=== PATIENT | female | born 1970 | race Caucasian/White ===

== ENCOUNTER 2020-08-26 10:39 | Emergency (ER) | payer SELFPAY ==
[2020-08-26 10:40] VITALS: BP 168/100; PULSE 77; RESP 20; TEMP 36.8; O2SAT 98
--- NOTE | 2020-08-26 11:21 | PC.NURSE ---
LEFT EYE IRRIGATED PER PREVIOUS RN - 90 ML NS - NEOSPORIN OPHTHALMIC OINTMENT APPLIED WITH GAUZE - EYE KIT AT BEDSIDE
[2020-08-26] MEDS: ALPRAZolam (*CRX) 0.5 MG TABLET PO (11:30)
[2020-08-26] MEDS: MORPHINE SULFATE (*CRX) 4 MG/ML INJ 2 MG IM (11:45)
--- NOTE | 2020-08-26 13:06 | PC.NURSE ---
CALL PLACED TO [facility] FOR CONSULT
--- NOTE | 2020-08-26 13:31 | ED.EYEPROB ---
HPI - Eye Problem General Chief complaint: Eye Problems Stated complaint: super glue in eye Time Seen by Provider: 08/26/20 10:41 Source: patient and family Mode of arrival: ambulatory History of Present Illness HPI Narrative: this is a 50-year-old female that earlier this morning inadvertently placed super glue into her left eye thinking that was Visine causing severe pain with some eyelid some glued shut, with tearing or redness and erythema around the the I and eyelids with some remnants of super glue on her eyelashes. chief complaint: eye pain and eye redness Onset (ago): hour(s) Onset description: sudden Duration: constant Location: left eye Eye Symptoms: redness and foreign body sensation Place: home Mechanism: chemical exposure ( Super glue in left eye) Severity: severe Severity scale (1-10): 10 If Pain, Quality: burning and aching Related Data Home Medications Medication Instructions Recorded Confirmed buprenorphine-naloxone [Suboxone] 0.25 film SUBLINGUAL DAILY 08/26/20 08/26/20 Allergies Allergy/AdvReac Type Severity Reaction Status Date / Time No Known Allergies Allergy Unverified 01/05/20 13:34 Review of Systems Review of Systems: All systems reviewed & are unremarkable except as noted in HPI and below PMFSH Past Medical History Medical History Encounter for cosmetic surgery Surgical History Surgical History History of hysterectomy Family History Family History Father Diabetes mellitus Mother Diabetes mellitus Social History Social History Smoking status: Current every day smoker Second hand tobacco smoke exposure: No Alcohol intake: former Exam Const: General: no acute distress Orientation/consciousness: patient oriented x3 HENMT: Head: normal to inspection Eyes: Pupils: Equal, round and reactive pupils present Other: Has some super glue that is on her eyelashes and and left eyelid is a glued shut with surrounding eyelid swelling and erythema Neck: Neck: no lymphadenopathy Chest: Chest palpation & inspection: normal inspection of the chest Resp: Effort & Inspection: normal respiratory effort Auscultation: clear to auscultation bilaterally : General: Yes no CVA tenderness Urinary Catheter: Urinary Catheter: patent and draining Back/Spine/Pelvis: Back: no CVA tenderness Skin: General skin exam: normal color Rashes: no rashes Neuro: General: patient oriented x3 Extrem: General: normal to inspection and no pedal edema Psych: Mental Status: mental status grossly normal Course Course Emergency Course: a reassessment of patient the left eye was irrigated and Neosporin ointment was placed over the the eyelid and the I eventually opened and was evaluated with a fluorescein stain which showed corneal abrasion and chunks of glue were retrieved with a cotton swab the eye itself was irrigated profusely and antibiotic eye ointment was placed over the left eyelid. The patient was in severe pain did receive some pain medication. Called Ophthalmology for for referral with sports book board attendant explained that we did everything that they were going to do and to continue antibiotic ointment and follow-up with ophthalmology. Vital Signs Vital signs: Vital Signs Temperature 36.8 C 08/26/20 10:40 Pulse Rate 77 08/26/20 10:40 Respiratory Rate 20 08/26/20 10:40 Blood Pressure 168/100 H 08/26/20 10:40 Pulse Oximetry 98 08/26/20 10:40 Temperature 36.8 C 08/26/20 10:40 Pulse Rate 77 08/26/20 10:40 Respiratory Rate 20 08/26/20 10:40 Blood Pressure 168/100 H 08/26/20 10:40 Pulse Oximetry 98 08/26/20 10:40 Procedures FB Removal Eye Foreign Body #1: Foreign Body Removal Date: 08/26/20 Foreign Body Remova
[2020-08-26 14:09] VITALS: RESP 16
== END 2020-08-26 14:13 | disposition home or self-care (01) ==
PROVIDERS: Emergency Provider Emergency Medicine; PCP Physician Assistant
DX: T15.02XA Foreign body in cornea, left eye, initial encounter (principal)
CPT/HCPCS: 65220; 96372; 99283; A9270; J2270; J7030

== ENCOUNTER 2024-12-19 10:07 | Outpatient (CLI) | payer OTHER, SELFPAY ==
--- NOTE | ~2024-12-19 | CT_ITS ---
CT sinus wo con Ordering provider: Joce Henley M.D. History: . J32.2 - Chronic ethmoidal sinusitis . Comparison: None. Technique: Thin slice Scans CT of the paranasal sinuses was performed with coronal and sagittal refor matted images. No IV contrast. . Automated exposure control and iterative reconstruction technique w ere employed. The dose-length product was 317.41 mGy-cm. Findings: NASAL SEPTUM: Mild right nasal septal deviation. OSTEOMEATAL UNITS: Bilaterally patent. NASAL TURBINATES AND NASOPHARYNX: Normal. PARANASAL SINUSES: Well aerated. VISUALIZED MASTOIDS: Normal as visualized. BONES: Normal. SUPERFICIAL SOFT TISSUES/VISUALIZED BRAIN PARENCHYMA: Normal. IMPRESSION: Mild right nasal septal deviation. Other appearances are unremarkable. Reviewed, dictated and finalized at location A.
== END 2024-12-19 10:08 | disposition home or self-care (01) ==
PROVIDERS: PCP Registered Nurse; Visit Provider Otolaryngology
DX: J32.2 Chronic ethmoidal sinusitis (principal); M26.622 Arthralgia of left temporomandibular joint; J31.0 Chronic rhinitis; J34.2 Deviated nasal septum
CPT/HCPCS: 70486

== ENCOUNTER 2025-01-03 12:23 | Emergency (ER) | payer OTHER, SELFPAY ==
--- OUTSIDE RECORDS SUMMARY | 2025-01-03 12:25 | XMS_ITS | Data Portability ---
Author Organization [facility] Address [address] [place] [address] Care Team Providers Care Contact Lens Manufacturer Name Role Phone CARLYN ALCANTARA Primary Care Provider [phone] Assessment No assessment recorded. Plan of Treatment Reminders Order Date Submit Date Provider Last Modified By Organization Details Last Modified Time Details Appointments None recorded. Lab CBC 2023 024 [facility], [address] [facility] [address], [place], [address], 4 10:17:05 CMP, serum or plasma 2023 024 [facility], [address] [place] [address] 2, [place], [address], 4 10:17:03 lipid panel, serum 2023 024 [facility], [address] [facility] [address], [place], [address], 4 10:17:01 urinalysis , dipstick 2023 024 MARYLU In-Office Order, Internal Use Only DO Not Attach Compendium DO Not Attach Compendium, Do Not Delete/merge, [id number] 12:05:23 Referral scale model maker referral 2023 024 MARYLU Christiansen DPShantal, [facility] [place], [address], 4 08:44:12 neurologic al surgeon referral 2023 [email or web address] [facility] Neurosurgery, [address] [facility], [place], [address], 11:14:11 Procedures None recorded. Surgeries None recorded. Imaging None recorded. Medication Orders Medrol (Zeke) 4 mg tablets in a dose pack 2023 [id number], [address], [place], [place], [id number], 11:34:16 gabapentin 100 mg capsule 2023 [id number], [address], [place], [place], [id number], 12:47:58 Patient TargetsNo targets recorded. Patient Instructions Encounter Date Encounter Id Patient Instructions Last Modified By Organization Details Last Modified Time 10/16/2023 [id number] healthy upper back: exercises [email or web address] Not available 10/16/2023 12:42:00 10/18/2023 [id number] healthy upper back: exercises [email or web address] Not available 10/18/2023 15:49:12 Reason for Referral Neurological Surgeon Referra l for Thoracic back pain Referring Physician: [facility], Encounter Date: 10/16/2023 Pre Parole Counseling Aide Referral for Bila teral plantar fasciitis Referring Physician: Carlyn Alcantara [facility] Medicine, Encounter Date: 12/04/2023 Results Created Date Observation Date Name Description Value Unit Range Abnormal Flag Note LastModifiedBy Organization Detail LastModifiedTime 12/04/1912/05/2023 LIPID PANEL cholesterol, total 226 mg/dL 100-19 9 above high normal Not Available [facility] [address] [place], [address], 12/05/2023 10:17:01 12/04/19 24 12/05/2023 LIPID PANEL triglyceride s 80 mg/dL 0-149 Not Available [address], [address], 12/05/2023 10:17:01 12/04/19 24 12/05/2023 LIPID PANEL HDL cholesterol 84 mg/dL >39 Not Available [address], [address], 12/05/2023 10:17:01 12/04/19 24 12/05/2023 LIPID PANEL VLDL cholesterol fabienne 14 mg/dL 5-40 Not Available [address], [address], 12/05/2023 10:17:01 12/04/19 24 12/05/2023 LIPID PANEL LDL chol calc (nih) 128 mg/dL 0-99 above high normal Not Available [address], [address], 12/05/2023 10:17:01 12/04/19 24 12/05/2023 COMP. METAB OLIC PANEL (14) glucose 96 mg/dL 70-99 Not Available [address], [address], 12/05/2023 10:17:03 12/04/19 24 12/05/2023 COMP. METAB OLIC PANEL (14) BUN 11 mg/dL 6-24 Not Available [address], [address], 12/05/2023 10:17:03 12/04/19 24 12/05/2023 COMP. METAB OLIC PANEL (14) creatinine 0.74 mg/dL 0.57-1 .00 Not Available [address], [address], 12/05/2023 10:17:03 12/04/19 24 12/05/2023 COMP. METAB OLIC PANEL (14) eGFR 95 mL/mi n/1.7 3 >59 Not Available [address], [address], 12/05/2023 10:17:03 12/04/19 24 12/05/2023 COMP. METAB OLIC PANEL (14) BUN/creatini ne ratio 15 9-23 Not Available [address], [address], 12/05/2023 10:17:03 12/04/19 24 12/05/2023 COMP. METAB OLIC PANEL (14) sodium 140 mmol/ L 134-14 4 Not Available [address], [address], 12/05/2023 10:17:03 12/04/19 24 12/05/2023 COMP. METAB OLIC PANEL (14) potassium 4.5 mmol/ L 3.5-5. 2 Not Available [address], [address], 12/05/2023 10:17:03 12/04/19 24 12/05/2023 COMP. METAB OLIC PANEL (14) chloride 102 mmol/ L 96-106 Not Available [address], [address], 12/05/2023 10:17:03 12/04/19 24 12/05/2023 COMP. METAB OLIC PANEL (14) carbon dioxide, total 22 mmol/ L 20-29 Not Available [address], [address], 12/05/2023 10:17:03 12/04/19 24 12/05/2023 COMP. METAB OLIC PANEL (14) calcium 9.2 mg/dL 8.7-10 .2 Not Available [address], [address], 12/05/2023 10:17:03 12/04/19 24 12/05/2023 COMP. METAB OLIC PANEL (14) protein, total 6.8 g/dL 6.0-8. 5 Not Available [address], [address], 12/05/2023 10:17:03 12/04/19 24 12/05/2023 COMP. METAB OLIC PANEL (14) albumin 4.4 g/dL 3.8-4. 9 Not Available [address], [address], 12/05/2023 10:17:03 12/04/19 24 12/05/2023 COMP. METAB OLIC PANEL (14) globulin, total 2.4 g/dL 1.5-4. 5 Not Available [address], [address], 12/05/2023 10:17:03 12/04/19 24 12/05/2023 COMP. METAB OLIC PANEL (14) A/G ratio 1.8 1.2-2. 2 Not Available [address], [address], 12/05/2023 10:17:03 12/04/19 24 12/05/2023 COMP. METAB OLIC PANEL (14) bilirubin, total 0.3 mg/dL 0.0-1. 2 Not Available [address], [address], 12/05/2023 10:17:03 12/04/19 24 12/05/2023 COMP. METAB OLIC PANEL (14) alkaline phosphatase 55 IU/L 44-121 Not Available [address], [address], 12/05/2023 10:17:03 12/04/19 24 12/05/2023 COMP. METAB OLIC PANEL (14) AST (SGOT) 18 IU/L 0-40 Not Available [facility] & [address], [address], 12/05/2023 10:17:03 12/04/19 24 12/05/2023 COMP. METAB OLIC PANEL (14) ALT (SGPT) 15 IU/L 0-32 Not Available [address], [address], 12/05/2023 10:17:03 12/04/19 24 12/05/2023 CARDI OVASC ULAR REPOR T interpretati on Note Suppl emfouzia al repor t is avail able. Not Available [address], [address], 12/05/2023 10:17:04 12/04/19 24 12/05/2023 CARDI OVASC ULAR REPOR T pdf . Not Available [facility] & [address], [address], 12/05/2023 10:17:04 12/04/19 24 12/05/2023 CBC, PLATE LET, NO DIFFE RENTI AL WBC 4.1 x10e3 /uL 3.4-10 .8 Not Available [address], [address], 12/05/2023 10:17:05 12/04/19 24 12/05/2023 CBC, PLATE LET, NO DIFFE RENTI AL RBC 4.01 x10e6 /uL 3.77-5 .28 Not Available [address], [address], 12/05/2023 10:17:05 12/04/19 24 12/05/2023 CBC, PLATE LET, NO DIFFE RENTI AL hemoglobin 12.3 g/dL 11.1-1 5.9 Not Available [facility] & [address], [address], 12/05/2023 10:17:12/04/1912/05/2023 CBC, PLATE LET, NO DIFFE RENTI AL hematocrit 37.1 % 34.0-4 6.6 Not Available [address], [address], 12/05/2023 10:17:12/04/1912/05/2023 CBC, PLATE LET, NO DIFFE RENTI AL MCV 93 fL 79-97 Not Available [facility] & [address], [address], 12/05/2023 10:17:12/04/19 24 12/05/2023 CBC, PLATE LET, NO DIFFE RENTI AL MCH 30.7 pg 26.6-3 3.0 Not Available [address], [address], 12/05/2023 10:17:12/04/19 24 12/05/2023 CBC, PLATE LET, NO DIFFE RENTI AL MCHC 33.2 g/dL 31.5-3 5.7 Not Available [address], [address], 12/05/2023 10:17:12/04/1912/05/2023 CBC, PLATE LET, NO DIFFE RENTI AL RDW 13.2 % 11.7-1 5.4 Not Available [address], [address], 12/05/2023 10:17:12/04/1912/05/2023 CBC, PLATE LET, NO DIFFE RENTI AL platelets 286 x10e3 /uL 150-45 0 Not Available [address], [address], 12/05/2023 10:17:05 12/04/19 24 12/04/2023 urina lysis , dipst ick Leukocytes Negati ve Not Available In-Office Order Internal Use Only DO Not Attach Compendium DO Not Attach Compendium, Do Not Delete/merge, [id number] 12/04/2023 11:35:22 12/04/19 24 12/04/2023 urina lysis , dipst ick Nitrite negati ve Not Available In-Office Order Internal Use Only DO Not Attach Compendium DO Not Attach Compendium, Do Not Delete/merge, 12/04/2023 11:35:22 12/04/19 24 12/04/2023 urina lysis , dipst ick Urobilinogen .2 Not Available In-Of fice Order Internal Use Only DO Not Attach Compendium DO Not Attach Compendium, Do Not Delete/merge, [facility] 12/04/2023 11:35:22 12/04/19 24 12/04/2023 urina lysis , dipst ick Protein Negati ve Not Available In-Office Order Internal Use Only DO Not Attach Compendium DO Not Attach Compendium, Do Not Delete/merge, 12/04/2023 11:35:22 12/04/19 24 12/04/2023 urina lysis , dipst ick pH 6.0 Not Available In-Office Order Internal Use Only DO Not Attach Compendium DO Not Attach Compendium, Do Not Delete/merge, 12/04/2023 11:35:22 12/04/19 24 12/04/2023 urina lysis , dipst ick Blood Negati ve Not Available In-Office Order Internal Use Only DO Not Attach Compendium DO Not Attach Compendium, Do Not Delete/merge, 12/04/2023 11:35:22 12/04/19 24 12/04/2023 urina lysis , dipst ick Specific [place] 1.005 Not Available In-Off ice Order Internal Use Only DO Not Attach Compendium DO Not Attach Compendium, Do Not Delete/merge, 12/04/2023 11:35:22 12/04/19 24 12/04/2023 urina lysis , dipst ick Ketone Negati ve Not Available In-Office Order Internal Use Only DO Not Attach Compendium DO Not Attach Compendium, Do Not Delete/merge, [facility] 12/04/2023 11:35:22 12/04/19 24 12/04/2023 urina lysis , dipst ick Bilirubin Negati ve Not Available In-Office Order Internal Use Only DO Not Attach Compendium DO Not Attach Compendium, Do Not Delete/merge, [facility] 12/04/2023 11:35:22 12/04/19 24 12/04/2023 urina lysis , dipst ick Glucose Negati ve Not Available In-Office Order Internal Use Only DO Not Attach Compendium DO Not Attach Compendium, Do Not Delete/merge, [facility] 12/04/2023 11:35:22 12/04/19 24 12/04/2023 urina lysis , dipst ick Appearance Clear Not Available In-Offi ce Order Internal Use Only DO Not Attach Compendium DO Not Attach Compendium, Do Not Delete/merge, [facility] 12/04/2023 11:35:22 12/04/19 24 12/04/2023 urina lysis , dipst ick Color Pale Yellow Not Available In-Office Order Internal Use Only DO Not Attach Compendium DO Not Attach Compendium, Do Not Delete/merge, [facility] 12/04/2023 11:35:22 09/10/19 24 08/17/2015 XR, cervi fabienne spine No observ ation record ed. BARCODE Not Available 2023 12:46:48 09/10/19 24 09/23/2015 MRI, cervi fabienne spine , w/o contr ast No observ ation record ed. BARCODE Not Available 2023 12:46:49 09/25/19 24 09/24/2023 XR, thora cic spine No observ ation record ed. [facility] (Radiology) [address] [place] [address] , [place], [address], 03/18/2024 09:51:01 09/25/19 24 09/24/2023 XR, cervi fabienne spine No observ ation record ed. [facility] (Radiology) [address] [place], [address], 03/18/2024 09:50:55 10/08/19 24 10/08/2023 MRI, thora cic spine , w/o contr ast No observ ation record ed. [facility] (Radiology) [address] [place], [address], 03/18/2024 09:50:49 Result Notes None recorded. Problems Name Problem SNOMED Code Status Onset Date Resolution Date Notes Provider Name and Address Organization Details Recorded Time Chronic migraine without aura 7823697207135 05 Active 2014 Valarie Burton [place] null, [place] [facility] 11:27:20 Postural dizziness 496028319 Active Valarie [place] [facility] 11:27:20 Anxiety 53748791 Active Valarie [place] [facility] 11:27:20 Joint finding 664660441 Active Valarie [place] [facility] 11:27:20 Mammography finding 409002612 Active Valarie [place] [facility] 11:27:20 Vaginal discharge 558011653 Active Valarie [place] [facility] 11:27:20 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 Active Valarie [place] [facility] 11:27:19 Migraine 45472422 Active Valarie [place] [facility] 11:27:20 Depressive disorder 85300078 Active Valarie [place] [facility] 11:27:20 Pain of shoulder region 87724450 Active Valarie [place] [facility] 11:27:20 Carpal tunnel syndrome 85635338 Active Valarie [place] [facility] 1 11:27:20 Lumbago with sciatica 042722963 Active Valarie [place] [facility] 11:27:19 Irregular periods 94736421 Active Valariejosé Burton ARTEM [place] [facility] 11:27:20 Uterine leiomyoma 00313535 Active Valariejosé Burton ARTEM [place] [facility] 11:27:20 Anemia 563745252 Active Valarie [place] ARTEM [place] [facility] 11:27:20 Menometrorr hagia 479460205 Active Valarie [place] [facility] 11:27:20 Dysuria 73401604 Active Valarie [place] [facility] 11:27:20 Menopausal flushing 579191930 Active Valarie [place] [facility] 11:27:20 Essential hypertensio n 01729100 Active Valarie [place] [facility] 11:27:20 Acute sinusitis 18636073 Active Valarie [place] [facility] 11:27:20 Constipatio n 71022558 Active Valarie BurtonARTEM [place] [facility] 11:27:20 Problem Notes None recorded. Procedures Surgical History Date Name Laterality Status Provider Name and Address Organization Details Recorded Time 2022 colonoscopy completed ARTEM Tay - [facility] 08:31:34 2022 esophagogastroduodenoscopy completed ARTEM Tay - [facility] 08:34:30 2019 Date of Last Mammogram completed ARTEM Whitman - [facility] 1 11:30:03 2015 Endometrial Biopsy completed Briana MARQUEZ - [facility] 6 16:30:10 2014 Total hysterectomy completed Valarie Burton MA [place] - [facility] 1 11:31:09 2014 colonoscopy completed ARTEM Whitman - [facility] 1 11:31:41 2012 Date of Last Pap Smear completed Callie MARQUEZ - [facility] 5 12:16:10 Anesth nose/sinus surgery completed Sheri Pham MA [facility] 5 15:37:07 Caesarean Section completed Ashley Thayer MA [facility] 6 14:12:11 Tubal Ligation completed Sheri Pham MA [facility] 5 15:37:07 Imaging Results None recorded. Procedure Notes None recorded. Medical Equipment None Reported. Allergies Allergen ID Allergen Name Allergen Category Reaction Reaction Severity Criticality Documentation Date Start Date Code Code System Note Provider Name and Address Organization Details Recorded Time 076102 cyclobenz aprine medicatio n Not available Not available Not available 07/28/2020 07175 RxNorm ARTEM Whitman, [facility] 3 10:41:07 Medications Name Sig Start Date Stop Date Status Note LastModified by Organization Details LastModified Time senna-s tab 8.6-50mg active Not Available Not Available Not Available senna s 8.6-50mg tablets TAKE 2 TABLETS BY MOUTH DAILY FOR CHRONIC CONSTIPA TION MANAGEME NT active Not Available Not Available No t Available Prescript ion - Prior Authoriza tion Request 11/15 completed Lupron request and document s Not Available Not Available Not Available celecoxib 200 mg capsule Take 1 capsule every day by oral route for 90 days. 09/29 completed not taking Not Available Not Available Not Available cyclobenz aprine 10 mg tablet Take 1 tablet 3 times a day by oral route as needed. active Not Available Not Available No t Available amoxicill in 500 mg capsule TAKE 1 CAPSULE BY MOUTH THREE TIMES DAILY 05/03 completed Not Available Not Available Not Available Colace 100 mg capsule Take 1 capsule twice a day by oral route. 2015 active Not Available Not Available Not Avai lable paroxetin e 10 mg tablet Take 1 tablet every day by oral route. 12/15 completed Not Available Not Available Not Available azithromy farshad 250 mg tablet TK 2 TS PO ON DAY 1, THEN TK 1 T PO D FOR 4 DAYS 03/27 completed Not Available Not Available Not Available ibuprofen 800 mg tablet Take 800 mg by oral route. 07/28 completed Not Available Not Available Not Available valacyclo vir 1 gram tablet active Not Available Not Available Not Available hydrocodo ne 5 mg-acetam inophen 325 mg tablet 07/28 completed Not Available Not Available Not Available dextromet horphan-g uaifenesi n 10 mg-100 mg/5 mL oral liquid Take 5 mL every 4 hours by oral route for 8 days. 05/30 completed Not Available Not Available Not Available Paxil 20 mg tablet Take 1 tablet every day by oral route. 12/15 completed Not Available Not Available Not Available ondansetr on HCl 4 mg tablet 02/20 completed Not Available Not Available Not Available prednison e 5 mg tablet active Not Available Not Available Not Available Pyridium 200 mg tablet Take 1 tablet 3 times a day by oral route after meals for 2 days. 11/15 completed Not Available Not Available Not Available Aygestin 5 mg tablet Take 1 tablet every day by oral route as directed for 30 days. 11/15 completed Not Available Not Available Not Available estradiol 0.05 mg/24 hr semiweekl y transderm al patch APPLY 1 PATCH TOPICALL Y TO THE SKIN 2 TIMES A WEEK DIRECTED 05/30 completed Not Available Not Available Not Available valacyclo vir 500 mg tablet TAKE 1 TABLET BY MOUTH TWICE DAILY. START 24 HOURS BEFORE PROCEDUR E active Not Available Not Available No t Available ciproflox acin 500 mg tablet TAKE 1 TABLET BY MOUTH TWICE DAILY FOR 10 DAYS 05/30 completed Not Available Not Available Not Available sulfameth oxazole 800 mg-trimet hoprim 160 mg tablet Take 1 tablet every 12 hours by oral route for 10 days. 05/02 completed Not Available Not Available Not Available omeprazol e 40 mg capsule,d elayed release TAKE 1 CAPSULE BY MOUTH ONCE DAILY BEFORE A MEAL active Not Available Not Available No t Available tramadol 50 mg tablet Take 1 tablet every 6 hours by oral route as needed. 05/03 completed Not Available Not Available Not Available neomycin- bacitraci n-polymyx n 3.5 mg-400 unit-10,0 00 unit/gram eye oint APPLY A SMALL AMOUNT INTO THE CONJUNCT IVAL SAC(S) IN AFFECTED EYE(S) BY OPHTHALM IC ROUTE EVERY 4 HOURS 05/03 completed Not Available Not Available Not Available terbinafi ne HCl 250 mg tablet Take 1 tablet every day by oral route for 84 days. active Not Available Not Available No t Available amoxicill in 875 mg tablet TAKE 1 TABLET BY MOUTH EVERY 12 HOURS FOR 10 DAYS 09/09 completed Not Available Not Available Not Available famotidin e 20 mg tablet 20 mg twice a day by oral route. 02/20 completed Not Available Not Available Not Available estradiol 1 mg tablet TAKE 1 TABLET BY MOUTH DAILY 05/30 completed Not Available Not Available Not Available ascorbic acid (vitamin C) 500 mg tablet 07/28 completed Not Available Not Available Not Available Zoloft 50 mg tablet Take 1 tablet every day by oral route. 11/15 completed Not Available Not Available Not Available methotrex ate sodium 2.5 mg tablet TAKE 5 TABLETS BY MOUTH IN THE MORNING AND 5 TABLETS IN THE EVEINING ONCE WEEKLY active Not Available Not Available No t Available meclizine 25 mg tablet Take 1 tablet 3 times a day by oral route as needed. 2014 active Not Available Not Available Not Avai lable Diamond 180 mg tablet Take 180 mg by oral route. 07/28 completed Not Available Not Available Not Available bisacodyl 10 mg rectal supposito ry Insert 1 supposit ory every day by rectal route as directed for 7 days. 11/15 completed Not Available Not Available Not Available cephalexi n 500 mg capsule TAKE 1 CAPSULE BY MOUTH EVERY 8 HOURS FOR 10 DAYS DIRECTED 09/29 completed Not Available Not Available Not Available ferrous sulfate 325 mg (65 mg iron) tablet Take 1 tablet 3 times a day by oral route. 2015 active Not Available Not Available Not Avai lable prednison e 50 mg tablet TAKE 1 TABLET BY MOUTH EVERY MORNING 09/09 completed Not Available Not Available Not Available naproxen 500 mg tablet,de layed release active Not Available Not Available Not Available progester one micronize d 200 mg capsule TAKE 1 CAPSULE BY MOUTH EVERY DAY AT BEDTIME 09/29 completed Not Available Not Available Not Available hydrochlo rothiazid e 12.5 mg capsule Take 1 capsule every day by oral route. 12/28 completed Not Available Not Available Not Available diclofena c potassium 50 mg tablet Take 1 tablet twice a day by oral route. 2015 active Not Available Not Available Not Avai lable gabapenti n 300 mg capsule TAKE 1 CAPSULE BY MOUTH THREE TIMES DAILY 12/03 completed Not taking Not Available Not Available Not Available sertralin e 25 mg tablet Take 1 tablet every day by oral route for 90 days. 01/07 completed Not Available Not Available Not Available omeprazol e 20 mg capsule,d elayed release Take 1 capsule every day by oral route for 90 days. 09/23 completed Not Available Not Available Not Available estradiol 2 mg tablet TAKE 1 TABLET BY MOUTH DAILY active Not Available Not Available No t Available diclofena c sodium 75 mg tablet,de layed release Take 1 tablet twice a day by oral route for 30 days. active Not Available Not Available No t Available folic acid 1 mg tablet active Not Available Not Available Not Available hydroxyzi ne HCl 25 mg tablet TAKE 1 TABLET BY MOUTH THREE TIMES A DAY NEEDED ANXIETY ATTACK active Not Available Not Available No t Available gabapenti n 100 mg capsule TAKE 1 CAPSULE BY MOUTH THREE TIMES DAILY active Not Available Not Available No t Available lotepredn ol etabonate 0.5 % eye drops,ro pension INSTILL ONE DROP IN BOTH EYES THREE TIMES DAILY X 2 WEEKS. SHAKE WELL BEFORE USE 09/09 completed Not Available Not Available Not Available azelastin e 137 mcg (0.1 %) nasal spray [place] 2 sprays every day by intranas al route for 10 days. 02/12 completed Not Available Not Available Not Available ibuprofen 600 mg tablet Take 1 tablet every 6 hours by oral route. 2015 active Not Available Not Available Not Avai lable estradiol 0.01% (0.1 mg/gram) vaginal cream APPLY A PEA SIZE AMOUNT AT NIGHT TO URETHRAL MEATUS AND VAGINAL OPENING TWICE WEEKLY 05/30 completed Not Available Not Available Not Available methylpre dnisolone 4 mg tablets in a dose pack FOLLOW PACKAGE DIRECTIO NS active Not Available Not Available No t Available Zoloft 100 mg tablet Take 1 tablet every day by oral route. 2014 active Not Available Not Available Not Avai lable fluticaso ne propionat e 50 mcg/actua tion nasal spray,ro pension [place] 2 sprays every day by intranas al route. 11/15 completed Not Available Not Available Not Available naproxen 500 mg tablet Take 1 tablet twice a day by oral route as needed. 2015 active Not Available Not Available Not Avai lable amoxicill in 875 mg-potass ium clavulana te 125 mg tablet Take 1 tablet every 12 hours by oral route for 10 days. 05/03 completed Not Available Not Available Not Available neomycin 3.5 mg/g-poly myxin B 10,000 unit/g-de xameth 0.1 % eye oint 05/03 completed Not Available Not Available Not Available neomycin- bacitraci n-poly-HC 3.5 mg-400-10 ,000 unit/g-1 % eye ointment 05/03 completed Not Available Not Available Not Available azithromy farshad 500 mg tablet TAKE 1 TABLET BY MOUTH EVERY DAY FOR 3 DAYS 05/30 completed Not Available Not Available Not Available aripipraz ole 20 mg tablet 05/03 completed Not Available Not Available Not Available Premarin 0.625 mg tablet Take 0.625 mg by oral route. 07/28 completed Not Available Not Available Not Available Zyrtec active Not Available Not Availa ble Not Available hydrochlo rothiazid e 12.5 mg tablet 11/15 completed Not Available Not Available Not Available buprenorp myranda 2 mg-naloxo ne 0.5 mg sublingua l film DISSOLVE 1 FILM UNDER TONGUE TWICE A DAY active Not Available Not Available No t Available Lupron Depot-Ped 11.25 mg (3 month) intramusc ular syringe kit Inject 1 kit by intramus cular route as directed . 2015 active Not Available Not Available Not Avai lable Linzess 145 mcg capsule TAKE 1 CAPSULE BY MOUTH EVERY DAY active Not Available Not Available No t Available Stimulant Laxative Plus 8.6 mg-50 mg tablet TAKE 2 TABLETS BY MOUTH DAILY FOR CHRONIC CONSTIPA TION MANAGEME NT active Not Available Not Available No t Available Minastrin 24 Fe 1 mg-20 mcg (24)/75 mg (4) chewable tablet Chew 1 tablet every day by oral route. 2015 active Not Available Not Available Not Avai labkat Brisdelle 7.5 mg capsule 11/15 completed Not Available Not Available Not Available ID NOW COVID-19 Test Kit TEST DIRECTED TODAY 09/29 completed Not Available Not Available Not Available Voltaren Arthritis Pain 1 % topical gel APPLY 2 GRAMS TO THE AFFECTED AREA(S) BY TOPICAL ROUTE 4 TIMES PER DAY 05/30 completed Not Available Not Available Not Available Paxlovid 300 mg (150 mg x 2)-100 mg tablets in a dose pack Take (1 Dose pack) two times a day for 5 days 09/29 completed Not Available Not Available Not Available Vitals Date Recorded Body height Body mass index (BMI) Body weight Oxygen saturation Oxygen saturation in Arterial blood by Pulse oximetry Heart rate Systolic And Diastolic Provider Name and Address Organization Details Last Updated DateTime 4 152.4 cm 22.8 kg/m2 81180.3 1 g 98 % 98 % 57 /min 118/84 mm[Hg] Valarie Burton MA MA - [facility] 4 15:23:47 Date Recorded Body height Body mass index (BMI) Body weight Body temperature Oxygen saturation Oxygen saturation in Arterial blood by Pulse oximetry Heart rate Respiratory rate Systolic And Diastolic Provider Name and Address Organization Details Last Updated DateTime 4 152.4 cm 22.8 kg/m2 52732.3 1 g 98.2 [degF] 99 % 99 % 59 /min 16 /min 118/82 mm[Hg] Carlyn Alcantara PA-C Attn: Carlo villarreal,[address] [place], [address], [place] - [facility] 4 12:08:07 Date Recorded Body height Body mass index (BMI) Body weight Oxygen saturation Oxygen saturation in Arterial blood by Pulse oximetry Heart rate Systolic And Diastolic Provider Name and Address Organization Details Last Updated DateTime 4 152.4 cm 23.1 kg/m2 84774.7 g 98 % 98 % 56 /min 124/78 mm[Hg] Arline Aguilar MA [facility] 4 15:27:22 Date Recorded Body height Body mass index (BMI) Body weight Oxygen saturation Oxygen saturation in Arterial blood by Pulse oximetry Heart rate Systolic And Diastolic Provider Name and Address Organization Details Last Updated DateTime 4 152.4 cm 23 kg/m2 46851.9 g 98 % 98 % 64 /min 102/68 mm[Hg] Arline Aguilar MA [facility] 4 12:18:03 Date Recorded Body height Body mass index (BMI) Body weight Oxygen saturation Oxygen saturation in Arterial blood by Pulse oximetry Heart rate Systolic And Diastolic Provider Name and Address Organization Details Last Updated DateTime 4 152.4 cm 23.7 kg/m2 41063.7 8 g 98 % 98 % 78 /min 146/88 mm[Hg] Arline Aguilar MA [facility] 4 11:16:09 Social History Question Answer Notes LastModified by Organizat ion Details LastModified Time Tobacco Smoking Status Former Smoker Sheri Pham MA [facility] 10/01/2014 15:37:07 Do You Have An Advance Directive? No Information not available 10/01/2014 What Is Your Level Of Caffeine Consumption? Heavy [email or web address] Information not available 10/16/2023 How Much Tobacco Do You Chew? None Information not available 12/16/2014 In The 14 Days Before Symptom Onset, Have You Had Close Contact With A Laboratory-confir med COVID-19 While That Case Was Ill? No Information not available 07/28/2020 In The 14 Days Before Symptom Onset, Have You Had Close Contact With A Person Who Is Under Investigation For COVID-19 While That Person Was Ill? No Information not available 07/28/2020 Have You Been To An Area Known To Be High Risk For COVID-19? No Information not available 07/28/2020 Are You Deaf Or Do You Have Serious Difficulty Hearing? No Information not available 05/03/2021 What Type Of Diet Are You Following? REGULAR Information not available 03/27/2022 Which Illicit Or Recreational Drugs Have You Used? None Information not available 12/16/2014 What Is The Highest Grade Or Level Of School You Have Completed Or The Highest Degree You Have Received? [id number] Information not available 07/26/2021 Who Is Your Employer? [employer] Information not available 07/26/2021 Are There Any Guns Present In Your Home? Yes Information not available 09/07/2015 Hard Of Hearing Or Deaf In One Or Both Ears? No Information not available 10/01/2014 Legally Blind In One Or Both Eyes? No Information no t available 10/01/2014 Marital Status Informatio n not available 10/01/2014 What Was The Date Of Your Most Recent Tobacco Screening? 12/04/2023 Information not available 12/04/2023 Performs Monthly Self-breast Exam? No Information no t available 10/01/2014 Do You Have Any Pets? Yes 8 Cats, 1 Dog Information not available 07/26/2021 What Is Your Relationship Status? Information not available 05/03/2021 Do You Use Your Seat Belt Or Car Seat Routinely? Yes Information not available 05/03/2021 Seat Belts Used Routinely Yes Information not available 10/01/2014 Smoke Alarm In Home Yes Information not available 10/01/2014 Do You Have Smoke And Carbon Monoxide Detectors In Your Home? Yes Information not available 05/03/2021 Are You Passively Exposed To Smoke? No Information no t available 05/03/2021 How Much Tobacco Do You Smoke? No Information not available 09/07/2015 General Stress Level High Information not available 07/28/2020 Do You Use Sunscreen Routinely? Yes Information not available 07/26/2021 Has Tobacco Cessation Counseling Been Provided? No Information not available 07/26/2021 On What Date Was Tobacco Cessation Counseling Provided? 12/04/2023 Information not available 12/04/2023 Sex: Female Functional Status Question Answer Note LastModified by Organizat ion Details LastModified Time Do you use any illicit or recreational drugs? No Information not available 05/03/2021 Do you or have you ever used any other forms of tobacco or nicotine? No Information not available 07/26/2021 What is your level of alcohol consumption? None Information not available 03/27/2022 Do you or have you ever used smokeless tobacco? Never used smokeless tobacco Information not available 01/08/2020 Are you currently employed? Yes Information not available 05/03/2021 Are you able to care for yourself? 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 Never used electronic cigarettes Information not available 01/08/2020 What is your exercise level? Heavy Information not available 07/26/2021 What type of noise exposure are you exposed to? Industrial Information not available 07/26/2021 Mental Status Question Answer Note LastModified by Organization D etails LastModified Time Do you feel stressed (tense, restless, nervous, or anxious, or unable to sleep at night)? [id number] Information not available 09/29/2022 Family History Relationship Description Onset Age of this Age Resolved Age Notes LastModified by Organization Details LastModified Time Mother Chronic obstructive pulmonary disease [email or web address] Not available 2015 23:03:25 Father Diabetes mellitus [email or web address] Not available 2015 23:03:25 Medical History Condition Response Other N High Blood Pressure N Atrial Fibrillation N Breast Cancer N Blood Clots N COPD N Depression N Lung Disease N Breast Problem N Anesthesia Complications N Headaches/Migraines Y Anxiety Disorder N Muscle, Joint, or Bone Problems N Vision or Eye Problems Y Infertility N Polyps N Acid Reflux (GERD) Y Cancer N Stroke N ADHD N Endometriosis N High Cholesterol N Liver Disease N Rheumatoid Arthritis Y Headaches N Schizophrenia N Heart Problems Y Thyroid Problems N Kidney or Bladder Problems N GI Problems Y Acne N Skin Problems N Eating Disorder N Anemia N Ovarian Cancer N Diabetes N Blood Transfusions N Seizures/Epilepsy N Urinary Tract Infection Y Abuse/Domestic Violence N Asthma N Allergies N Substance Abuse Y Hepatitis N Heart Disease N Pre-Eclampsia N Osteoporosis N Heart Failure N Gynecological History Statement/Question Response Date of Last Mammogram 07/02/2019 Flow STIs/STDs N HPV Vaccine N Duration of Flow (days) Age at Menarche 8 Current Control Method Hysterectom y Age at First Child 16 Frequency of Cycle (Q days) Sexually Active? Y Menses Monthly Y Date of Last Pap Smear 11/29/2012 Sexual Problems? N LMP Definite Obstetrics History GPAL:G 3 P 2 0 1 2 Type Value Full Term 2 Spontaneous 1 Living 2 Total 3 Immunizations Vaccine Type Date Status Note Provider Nam e and Address Organization Details Recorded Time Influenza, MDCK, quadrivalent, PF 9 completed Not Available [facility] 08/06/2023 14:25:02 Influenza, split virus, quadrivalent, preservative 8 completed Not Available [facility] 08/06/2023 14:25:02 Tdap 7 completed Not Available [facility] 07/19/2019 02:49:13 Influenza, split virus, trivalent, preservative 5 completed Not Available [facility] 07/19/2019 02:40:26 Past Encounters Encounter ID Performer Location Encounter Start Date Encounter Closed Date Diagnosis/Indication Diagnosis SNOMED-CT Code Diagnosis ICD10 Code Diagnosis Note [id number] MD Annette Campbell ([facility]) [address] [place] [address] 10/01/2014 15:21:05 10/01/2014 17:54:32 Postural dizziness 058403704 Anxiety 79312068 Joint finding [id number] MD Annette Lyons ([facility] [address]) [address] [place] [address] 12/16/2014 15:12:32 12/16/2014 18:12:29 Vaginal discharge [id number] Perimenopa usal disorder 715323063 Patient counseled that these changes may be due to perimenopa usal transition . She was advised that we could discuss management if troublesom e however, patient declines at this time. Other perimenopa usal symptoms were reviewed. [id number] MD Annette Campbell ([facility] [address]) [address] [place] [address] 02/25/2015 14:46:27 02/25/2015 16:48:15 Migraine [id number] MD Annette Campbell ([facility] [address]) [address] [place] [address] 04/29/2015 16:07:55 04/29/2015 16:55:23 Depressive disorder 19551103 F32.0 Administra tion of influenza vaccine 23070423 Z23 [id number] MD Annette Campbell ([facility] [address]) [address] [place] [address] 07/21/2015 11:25:32 07/21/2015 15:37:50 Pain of shoulder region 79670052 M25.511 Carpal asha dipesh syndrome 25148057 G56.00 Lumbago with sciatica 20 3551192 M54.42 [id number] MD Annette Lyons ([place] [address]) [address] [place] [address] 09/07/2015 11:44:59 09/08/2015 11:16:35 Gynecologic examination 26580703 Z01.419 Screening mammography 24 185805 Z12.31 Irregular periods 654289 07 N92.6 Patient to return after ultrasound for EMB Uterine leiomyoma 374040 05 D25.9 [id number] MD Annette Lyons ([place] [address]) [address] [place] [address] 09/28/2015 13:58:30 09/30/2015 16:32:02 Irregular periods 31429712 N92.6 [id number] MD Annette Lyons ([place] [address]) [address] [place] [address] 10/06/2015 11:25:02 10/07/2015 10:37:17 Irregular periods 05694932 N92.6 Anemia 223953484 D64.9 [id number] MD Annette Higgins ([place] [address]) [address] [place] [address] 12/01/2015 14:04:19 12/01/2015 14:57:27 Uterine leiomyoma 59047339 D25.9 Menometrorrhagia 2338285 08 N92.1 [id number] MD Annette Higgins ([place] [address]) [address] [place] [address] 12/15/2015 10:22:44 12/27/2015 15:13:08 Dysuria 65379928 R30.0 Menopausal flushing 1983 81536 N95.1 [id number] KRISTINA Patel ([place] [address]) [address] [place] [address] 12/29/2015 10:54:29 12/29/2015 11:45:55 Essential hypertension 80886800 I10 Acute sinusitis 70689052 J01.90 [id number] MD Annette Higgins ([facility]) [address] [place] [address] 01/07/2016 13:30:43 01/10/2016 02:12:54 Uterine leiomyoma 28658266 D25.9 [id number] MD Annette Higgins ([facility] 122) [address] [place] [address] 01/25/2016 14:27:44 01/25/2016 18:39:59 Postoperative visit 190849864 Z09 Constipation 74329495 K5 9.00 [id number] MD Annette Higgins ([place] [address]) [address] [place] [address] 02/29/2016 14:51:25 02/29/2016 23:10:53 Menopausal flushing 546200837 N95.1 Postoperative visit 1836 09420 Z09 [id number] KRISTINA Patel ([place] [address]) [address] [place] [address] 03/20/2016 16:10:32 03/20/2016 16:51:34 Anxiety 69562366 F41.9 Essential hypertension 60288291 I10 Menopausal flushing 1983 36417 N95.1 [id number] MD Annette Lau ([facility] [address]) [address] [place] [address] 07/04/2016 10:18:02 07/04/2016 14:14:33 Upper respiratory infection 17868250 J06.9 Counseled on URI and medication -Warm salt water gargles, rest, increase fluids. Over the counter decongesta nt. Tylenol/Ib uprofen for pain/fever , humidifier in the house. Depressive disorder 3548 9007 F32.0 Counseled on depression /anxiety and medication . Advised to call [employer]WORK [employer]PERATIONS MANAGER in regards to hormones. Advised importance of stress reduction- walking, meditation , yoga. Encouraged to seek out help from loved ones and friends to help manage home life. Anxiety 91486301 F41.9 [id number] Darci Cerda MD [facility] [address] [place] [address] 07/27/2016 11:58:47 07/27/2016 17:48:11 Chronic recurrent sinusitis 425852926 J32.0 [id number] Darci Cerda MD [facility] [address] [place] [address] 10/27/2016 16:32:00 10/27/2016 17:43:18 Screening mammography 55154806 Z12.31 Depressive disorder 3548 900 F32.0 Pain of breast 10171997 N64.4 [id number] Darci Cerda MD [facility] [address] [place] [address] 11/15/2016 15:45:56 11/15/2016 17:12:42 Worms in stool 362343307 R19.5 Fatigue 62757485 R53.83 [id number] MD Annette Higgins ([place] [address]) [address] [place] [address] 11/23/2016 10:00:14 11/23/2016 16:21:55 Venereal disease screening 272907795 Z11.3 Menopausal syndrome 1237 89011 N95.9 [id number] Darci Cerda MD [facility] [address] [place] [address] 12/15/2016 11:03:05 12/15/2016 16:48:21 Perimenopausal disorder 608454818 N95.9 Depressive disorder 3548 9007 F32.0 Anxiety 23485859 F41.1 Essential hypertension 00291383 I10 Osteoarthritis 332945700 M19.90 [id number] MD Annette Higgins ([facility]) [address] [place] [address] 12/21/2016 13:40:42 12/21/2016 14:31:29 Genital herpes simplex 04325785 A60.9 [id number] Darci Cerda MD [facility] [address] [place] [address] 12/28/2016 16:02:19 12/28/2016 17:54:00 Puncture wound of sole of foot 194696275 S91.331A [id number] Carlyn Alcantara PA-C [facility] [address] [place] [address] 05/02/2018 14:32:14 05/02/2018 15:17:02 Blurring of visual image 823642262 H53.8 Acute maxi llary sinusitis 65949590 J01.00 [id number] Carlyn Alcantara PA-C [facility] [address] [place] [address] 09/24/2018 15:41:04 09/24/2018 17:24:49 Acute bronchitis with bronchospasm 99545776 J20.8 Acute maxi llary sinusitis 30348091 J01.01 Depressive disorder 3548 9007 F32.0 [id number] Carlyn Alcantara PA-C [facility] [address] [place] [address] 01/08/2020 10:09:18 01/09/2020 06:56:54 Complaining of a rash 569708297 R21 Acute maxi llary sinusitis 96371828 J01.01 [id number] Darci Cerda MD [facility] [address] [place] [address] 07/28/2020 11:15:53 07/30/2020 09:10:18 Increased frequency of urination 422318132 R35.0 Unintentio nal weight loss 749395878 R63.4 Onychomyco sis of toenails 890557692 B35.1 Abnormal vision 2743616 H54.7 Squamous c ell carcinoma of skin 743019481 C44.92 [id number] Darci Cerda MD [facility] [address] [place] [address] 12/21/2020 09:32:26 12/22/2020 12:55:00 Acute maxillary sinusitis 28667247 J01.01 [id number] Carlyn Alcantara PA-C [facility] [address] [place] [address] 04/18/2021 12:31:05 04/18/2021 13:58:14 Dysuria 57827425 R30.9 [id number] Carlyn Alcantara PA-C [facility] [address] [place] [address] 05/03/2021 17:52:04 05/03/2021 18:41:04 Adult health examination 183272470 Z00.00 Chronic id iopathic constipation 13174032 K59.04 History of polyp of colon 841828428 Z86.010 Chronic re current sinusitis 617233517 J32.0 [id number] MD Arjun Sheikh (Adult Med) [address] [place] [address] 07/26/2021 12:36:23 07/27/2021 07:38:35 Chronic sinusitis 06303018 J32.9 [id number] MD Arjun Sheikh (Adult Med) [address] [place] [address] 09/20/2021 10:03:52 09/21/2021 15:58:41 Chronic rhinitis 01611857 J31.0 Migraine 50491606 G43.90 9 [id number] Carlyn Alcantara PA-C [facility] [address] [place] [address] 03/27/2022 10:46:46 03/27/2022 11:30:01 Generalized osteoarthritis 439730266 M15.8 [id number] HAILEE L[facility] [address] [place] [address] 05/30/2022 16:28:54 05/30/2022 17:14:37 Dysuria 46235254 R30.9 Fatigue 22790801 R53.83 Intolerant of cold 88785 000 R68.89 [id number] Carlyn lAcantara PA-C [facility] [address] [place] [address] 09/29/2022 10:32:15 10/01/2022 12:48:08 Dysuria 24723111 R30.9 Excessive sweating 26361 005 R61 Atypical angina 88984701 2 I20.8 Dizzy spells 228280817 R 42 Overweight 823531496 E66 .3 [id number] Darci Cerda MD [facility] [address] [place] [address] 02/12/2023 10:15:42 02/13/2023 11:40:00 Irritable bowel syndrome characterized by constipation 447408198 K58.1 Gastroesop hageal reflux disease without esophagitis 049718479 K21.9 History of polyp of colon 881592004 Z86.010 Adult [facility] th examination 474034702 Z00.00 [id number] Carlyn Alcantara PA-C [facility] [address] [place] [address] 06/22/2023 15:15:14 06/26/2023 12:08:37 Viral syndrome 361972770 B34.9 Upper resp iratory infection 88816042 J00 Overweight 113804228 E66 .3 [id number] Carlyn Alcantara PA-C [facility] [address] [place] [address] 09/10/2023 11:21:53 09/15/2023 11:24:22 Acute thoracic back pain 048894051 M54.6 Underweight 917776969 R6 3.6 [id number] Carlyn Alcantara PA-C [address] [address] 09/24/2023 15:11:24 09/28/2023 00:28:35 Pain of right shoulder joint 8346816241 4532099 M25.511 Scapulalgia 36028509 M25 .511 Body mass index 20-24 - normal 363194666 Z68.22 [id number] Carlyn Alcantara PA-C [facility] [address] [place] [address] 10/16/2023 11:59:27 10/18/2023 14:29:20 Anterior to posterior tear of superior glenoid labrum of right shoulder 8724436675 1230347 S43.431D Thoracic back pain 21062 8004 M54.6 [id number] Carlyn Alcantara PA-C [facility] [address] [place] [address] 10/18/2023 15:21:29 10/19/2023 14:07:00 Pain of right shoulder joint 0901639768 7857237 M25.511 Thoracic back pain 93627 8004 M54.6 [id number] Darci Cerda MD [facility] [address] [place] [address] 11/07/2023 11:55:23 11/12/2023 14:51:37 Anterior to posterior tear of superior glenoid labrum of right shoulder 8080170847 2914518 S43.431D [id number] Darci Cerda MD [facility] [address] [place] [address] 12/04/2023 11:01:44 12/05/2023 12:16:41 Blister 751039334 R23.8 Bilateral plantar fasciitis 6931535410 8789080 M72.2 Adult heal th examination 513634252 Z00.00 Health Concerns Section Related Observation LastModified by Organization Detai ls LastModified Time None Recorded Concern Status LastModified by Organization Details LastModified Time None Recorded Advance Directives Directive N: Payers Insurance Date Sequence Insurance Name Policy Number Policy Chavarria Covered Member ID Chavarria Member ID Guarantor Name 05/03/2021 SLIDING FEE SCHEDULE - DISCOUNT Eva Mccullough 07/28/2020 SLIDING FEE SCHEDULE - DISCOUNT Eva Mccullough 04/26/2020 1 [place] Eva Mccullough [id number] Eva Mccullough 05/03/2021 1 *SELF PAY* Cliff Mccullough 09/24/2023 TRAVELERS Va Mccullough 01/14/2016 1 [place] Eva Mccullough [id number] Eva Mccullough 09/24/2018 1 [place] Eva Mccullough [id number] Eva Mccullough 04/26/2020 2 [place] Eva Mccullough [id number] Eva Mccullough 12/04/[address] [facility] [id number] Eva Mccullough [id number] Eva Mccullough Notes Date Note Type Note Provider Name and Address Organization Details Recorded Time 09/24/2023 text/html just got xrays d one ...needs fmla papers...reports torn rotator cuffs..xray was done re rt scapular pain with radiculopathy Carlyn Alcantara PA-C Attn: Accounting, 1 [facility], [place], [place], [address] [place] [address], [facility] 09/24/2023 15:52:42 10/16/2023 text/html rt shoulder pain continues..would like to reduce gabapentin..discuss what a Tarlov cyst is...wants disability Carlyn Alcantara PA-C Attn: Accounting, 1 [facility], [place], [place], [address] [place] [address], [facility] 10/16/2023 12:47:39 10/18/2023 text/html FMLA vs shoulder and back pain incurred at work.. Carlyn Alcantara PA-C Attn: Accounting, 1 [facility], [place], [address] [place] [address], [facility] - [facility] 10/18/2023 15:49:37 11/07/2023 text/html continues to nina l with what she says is work related injury on rt shoulder. mri showed labrum tear. Carlyn Alcantara PA-C Attn: Accounting, 1 [facility], [place], [place], [address] [place] [address], [facility] - [facility] 11/07/2023 12:55:46 12/04/2023 text/html has some eruptio ns on scattered areas of body...red based and ulcerative on top without exudate...reports extreme pain in both heels... Carlyn Alcantara PA-C Attn: Accounting, 1 [facility], [place], [place], [address] [place] [address], [facility] 12/04/2023 11:45:50 OBGyn Episode No OBEpisode recorded.
--- OUTSIDE RECORDS SUMMARY | 2025-01-03 12:25 | XMS_ITS | Clinical Summary ---
Author Organization [facility] Address [facility] [place] [address] Care Team Providers Care Senior Sales Representative Name Role Phone Cong Alcantara Primary Care Provider [phone] Allergies Active Allergy Reactions Criticality Noted Date Comments Prednisone Nausea and Vomiting 08/19/2023 Medications buprenorphine-n aloxone (SUBOXONE) 2-0.[address] 1 Film under the tongue. 3 Active cetirizine (ZYRTEC) 10 MG tablet Take 1 tablet (10 mg total) by mouth daily. Active estradiol (ESTRACE) 2 MG tablet Take 1 tablet (2 mg total) by mouth daily. Active hydrOXYzine (ATARAX) 25 MG tablet Take 1 tablet (25 mg total) by mouth. Active Simethicone 125 MG Cap Take one pill up to 4 times daily as needed for problematic cramping, bloating, gas, and/or nausea. 3 Active loteprednol (LOTEMAX) 0.5 % ophthalmic suspension Place 1 drop into both eyes 4 (four) times daily. 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 07/16/2023 Family History Medical History Relation Comments Diabetes Father No Known Problems Mother Relation Status Comments Father Alive Mother Alive Social History Tobacco Use Types Packs/Day Years Used Date Smoking Tobacco: Never Smokeless Tobacco: Never Tobacco Cessation:Counseling Given: Not Answered Alcohol Use Standard Drinks/Week Comments Not Currently 0 (1 standard drink = 0.6 oz pur e alcohol) Comments Unknown Sex and Gender Information Value Date Recorded Sex Assigned at Not on file Legal Sex Female 11:52 AM CDT Gender Identity Female 11/29/2023 11:38 AM CDT Sexual Orientation Straight 11/29/2023 11 :38 AM CDT Last Filed Vital Signs Vital Sign Reading Time Taken Comments Blood Pressure 130/62 08/19/2023 8:49 AM NUTRITION PARTNER Pulse 55 08/19/2023 8:49 AM NUTRITION PARTNER Temperature 36.7 C (98.1 F) 08/19/2023 8:49 AM NUTRITION PARTNER Respiratory Rate 16 08/19/2023 8:49 AM NUTRITION PARTNER Oxygen Saturation 97% 08/19/2023 8:49 AM NUTRITION PARTNER Inhaled Oxygen Concentration - - Weight 52.2 kg (115 lb) 09/05/2023 2:16 PM NUTRITION PARTNER Height 152.4 cm (5') 09/05/2023 2:16 PM NUTRITION PARTNER Body Mass Index 22.46 09/05/2023 2:16 PM NUTRITION PARTNER Plan of Treatment Health Maintenance Due Date Last Done Comments Colorectal Cancer Screening Colonoscopy (10 Years) 1968 Annual Physical 1971 Hepatitis B Vaccines (1 of 3 - 19+ 3-dose series) 1987 Mammogram Screening 2008 Pneumococcal Vaccine: 50+ Ye ars (1 of 1 - PCV) 2018 Zoster Vaccines (1 of 2) 2018 COVID-19 Vaccine (1 - 2023-2 5 season) 2024 PHQ-2 (Physician [place]) 07/02/2024 DTaP, Tdap and Td Vaccines ( 2 - Td or Tdap) 12/28/2026 12/28/2016 Hepatitis C Completed 11/03/2020 Meningococcal B Vaccine Aged Out No l onger eligible based on patient's age to complete this topic Meningococcal Vaccine Aged Out No sumaya armen eligible based on patient's age to complete this topic RSV Immunizations Under 20 Months Aged Out No longer eligible based on patient's age to complete this topic Procedures Procedure Name Priority Date/Time Associated Diagnosis Comments HEPATITIS C ANTIBODY Routine 11/03/2020 11:52 AM CDT Encounter for screening for infections with a predominantly sexual mode of transmission from Last 3 Months or Most Recently Relevant to Health Maintenance Results * HEPATITIS C ANTIBODY (11/03/2020 11:52 AM CDT) HEPATITIS C AB NON-REACTI VE NON-REACT HOW[place] 11/03/2020 8:54 PM CDT [facility] Comment: ANTIBODIES TO HCV NOT DETECTED. DOES NOT EXCLUDE THE POSSIBILITY OF EXPOSURE TO HCV. 11/03/2020 11:5 2 AM CDT Jennifer Jordan NP LABORATORY Final Result [facility] [address] [place] [address], [id number] from Last 3 Months or Most Recently Relevant to [place] [address] [employer] Care Teams Senior Sales Representative Relationship Specialty Start Date End Date Cong Alcantara PA PCP - General PHYSICIAN RADIO PROGRAM CHECKER 07/16/23
--- OUTSIDE RECORDS SUMMARY | 2025-01-03 12:26 | XMS_ITS | Clinical Summary ---
Author Organization [facility] Address [address] [place] [address] Phone Care Team Providers Care Muffle Worker Name Role Phone Cong Alcantara Primary Care Provider [phone] Social History Tobacco Use Types Packs/Day Years Used Date Smoking Tobacco: Never Assessed Comments No Sex and Gender Information Value Date Recorded Sex Assigned at Not on file Legal Sex Female 9:07 PM CDT Gender Identity Not on file Sexual Orientation Not on file Plan of Treatment Health Maintenance Due Date Last Done Comments Hepatitis B Immunization (1 of 3 - 19+ 3-dose series) 1987 Pap Smear 1989 Cervical Cancer Screening (CCS) 1998 HPV/Cotest 1998 Cologuard 2013 Colonoscopy 2013 Colorectal Cancer Screening 2013 Immunochemical Fecal Occult Blood 2013 Pneumococcal Immunization (5 0+ years) (1 of 1 - PCV) 2018 Zoster Immunization (1 of 2) 2018 Mammogram 11/11/2021 11/11/2020 SARS-COV-2 Immunization ( - 2023- season) 2024 Influenza Immunization (Seas on Ended) 2025 04/22/2019, 04/16/2018 Respiratory Syncytial Virus (RSV) Immunization (Adult) (1 - 1-dose 75+ series) 2043 DTaP/Tdap/Td Immunization Discontinued 12/28/2016 TdaP Immunization Completed 12/28/2016 Hepatitis C Virus (HCV) Screening Completed 11/03/2020 Human Papillomavirus (HPV) Immunization Aged Out No longer eligible based on patient's age to complete this topic Meningococcal Immunization (ACWY) Aged Out No longer eligible based on patient's age to complete this topic Rotavirus Immunization Aged Out No lo nger eligible based on patient's age to complete this topic Procedures Procedure Name Priority Date/Time Associated Diagnosis Comments ARSEN SCREENING BILATERAL DIGITAL W CAD W MAYA Routine 11/11/2020 5:52 PM CDT Encounter for screening mammogram for malignant neoplasm of breast from Last 3 Months or Most Recently Relevant to Health Maintenance Results * ARSEN SCREENING BILATERAL DIGITAL W CAD W MAYA (11/11/2020 5:52 PM CDT) Anatomical Region Laterality Modality breast Bilateral Mammography 11/11/2020 5:53 PM CDT Narrative 11/17/2020 8:11 AM CDT - ARSEN SCREENING BILATERAL DIGITAL W CAD W MAYA BILATERAL DIGITAL SCREENING MAMMOGRAM 3D/2D WITH CAD WITH MEDIOLATERAL OBLIQUE CRANIOCAUDAL: 11/11/2020 The study was acquired using digital technology and interpreted from soft copy. Current study was also evaluated with ICAD version 7.2. 2D digital mammographic views, as well as 3D digital tomosynthesis were performed in the CC and MLO projections. CLINICAL: Routine screening. Patient has no complaints. No personal history of cancer. No family history of breast cancer. Due to patient's pectus carinatum, additional images were taken in an effort to obtain adequate breast tissue. COMPARISONS: Comparison is made to exams dated: 11/16/2016, 09/21/2015, and 04/30/2014 [facility]. BREAST TISSUE:The tissue of both breasts is heterogeneously dense. This may lower the sensitivity of mammography. FINDINGS: No significant masses, calcifications, or other findings are seen in either breast. There has been no significant interval change. IMPRESSION: BI-RAD 1 NEGATIVE There is no mammographic evidence of malignancy. A 1 year screening mammogram is recommended. The patient has been or will be contacted. The patient will be entered into a reminder system with a target due date of 1 year for her next screening exam. Electronically signed by: Julien dupree/paula:11/16/2020 16:31:53 Administrative Professional: Nicol Aguilar RT(R)(M), [facility] letter sent: Normal Exam Reading location: [place] BI-RADS: 1 Negative Procedure Note Julien Tena MD - 11/17/2020 - ARSEN SCREENING BILATERAL DIGITAL W CAD W MAYA BILATERAL DIGITAL SCREENING MAMMOGRAM 3D/2D WITH CAD WITH MEDIOLATERAL OBLIQUE CRANIOCAUDAL: 11/11/2020 The study was acquired using digital technology and interpreted from soft copy. Current study was also evaluated with ICAD version 7.2. 2D digital mammographic views, as well as 3D digital tomosynthesis were performed in the CC and MLO projections. CLINICAL: Routine screening. Patient has no complaints. No personal history of cancer. No family history of breast cancer. Due to patient's pectus carinatum, additional images were taken in an effort to obtain adequate breast tissue. COMPARISONS: Comparison is made to exams dated: 11/16/2016, 09/21/2015, and 04/30/2014 [facility]. BREAST TISSUE:The tissue of both breasts is heterogeneously dense. This may lower the sensitivity of mammography. FINDINGS: No significant masses, calcifications, or other findings are seen in either breast. There has been no significant interval change. IMPRESSION: BI-RAD 1 NEGATIVE There is no mammographic evidence of malignancy. A 1 year screening mammogram is recommended. The patient has been or will be contacted. The patient will be entered into a reminder system with a target due date of 1 year for her next screening exam. Electronically signed by: Julien dupree/paula:11/16/2020 16:31:53 Administrative Professional: Nicol Aguilar RT(R)(M), [facility] letter sent: Normal Exam Reading location: [place] BI-RADS: 1 Negative Cong [facility] MAMMO ORDERABLES Final Re sult from Last 3 Months or Most Recently Relevant to Health Maintenance Insurance Care Teams Muffle Worker Relationship Specialty Start Date End Date Cong Alcantara, [address] [place] [address] PCP - General Physician Communications Lead 07/25/23
--- OUTSIDE RECORDS SUMMARY | 2025-01-03 12:26 | XMS_ITS | Referral Summary ---
Author Organization [facility] Address [address] [place] [address] Care Team Providers Care Second Rigger Name Role Phone Will Joiner NP Primary Care Provi naveen Encounters Date Type Department Care Team Description 10/27/2024 Telephone [facility] Orthopedic and Sports Medicine [facility] [place] [address] Phillip Thompson MD from Last 3 Months Allergies Active Allergy Reactions Criticality Noted Date Comments Cyclobenzaprine Diclofenac Medications ibuprofen (ADVIL,MOTRIN) 800 mg tablet take 1 tablet by oral route 3 times every day with food 0 0 6 Active ascorbic acid (VITAMIN C) 500 mg tablet,chewable Take 1 tablet by mouth 2 times daily until finished 60 tablet/chew tab 7 Active famotidine (PEPCID) 20 mg tablet Take 1 tablet (20 mg total) by mouth 2 (two) times a day 30 tablet 9 Active cetirizine (ZyrTEC) 10 mg tablet Take 1 tablet (10 mg total) by mouth daily Active estradioL (ESTRACE) 2 mg tablet Take 1 tablet (2 mg total) by mouth daily 3 Active hydrOXYzine (ATARAX) 25 mg tablet TAKE 1 TABLET BY MOUTH THREE TIMES A DAY NEEDED ANXIETY ATTACK Active buprenorphine-n aloxone (SUBOXONE) 2-0.5 mg per SL tablet Place under the tongue daily Active senna-docusate (PERICOLACE) 8.6-50 mg Take two pills daily for chronic constipation management. 180 tablet 3 3 Active simethicone (GAS-X) 125 mg capsule Take one pill up to 4 times daily as needed for problematic cramping, bloating, gas, and/or nausea. 120 capsule 3 3 Active azelastine (ASTELIN) 137 mcg (0.1 %) nasal sprayIndication s:Non-seasonal allergic rhinitis due to pollen Administer 2 sprays into each nostril 2 (two) times a day Use in each nostril as directed 360 mL 3 5 07/17/19 26 Active Active Problems Problem Noted Date Diagnosed Date Non-seasonal allergic rhinitis due to pollen Assessment & Plan (07/17/2024 2:52 PM ASSOCIATE MEDIA PLANNER): Stop Flonase Astelin (azelastine) 2 sprays into each nostril while looking down over the sink, do not sniff in or blow nose after use for at least 30 minutes twice daily Consider trying 1/2 tablet of cetirizine as needed Blood allergy testing Irritable bowel syndrome with constipation 03/20 Gastroesophageal reflux disease without esophagi tis 03/20/2023 History of colonoscopy with polypectomy 03/20/20 23 Screening for colon cancer 10/17/2021 Overview (10/17/2021): Added automatically from request for surgery [id number] Chronic migraine without aura 05/04/2015 Overview (10/06/2016): Chronic migraine without aura Social History Tobacco Use Types Packs/Day Years Used Date Smoking Tobacco: Former Alcohol Use Standard Drinks/Week Comments No 0 (1 standard drink = 0.6 oz pur e alcohol) AUDIT-C Answer Date Recorded Q1: How often do you have a drink containing alc ohol? 2-4 times a month 03/20/2023 Average Number of Drinks Not on file 023 Frequency of Binge Drinking Not on file 03/02 Personal Safety Answer Date Recorded Have you ever been in or are you currently in a harmful physical or emotional relationship or is someone making you feel afraid or unsafe? Denies 06/04/2023 Comments No Sex and Gender Information Value Date Recorded Sex Assigned at Not on file Legal Sex Female 10:03 AM ASSOCIATE MEDIA PLANNER Gender Identity Not on file Sexual Orientation Not on file Last Filed Vital Signs Vital Sign Reading Time Taken Comments Blood Pressure 146/82 07/17/2024 2:26 PM ASSOCIATE MEDIA PLANNER Pulse 52 07/17/2024 2:26 PM ASSOCIATE MEDIA PLANNER Temperature 36.9 C (98.5 F) 06/04/2023 1:48 PM ASSOCIATE MEDIA PLANNER Respiratory Rate 18 07/17/2024 2:26 PM ASSOCIATE MEDIA PLANNER Oxygen Saturation 99% 07/17/2024 2:26 PM ASSOCIATE MEDIA PLANNER Inhaled Oxygen Concentration - - Weight 54.9 kg (121 lb) 07/17/2024 2:26 PM ASSOCIATE MEDIA PLANNER Height 152.4 cm (5') 07/17/2024 2:26 PM ASSOCIATE MEDIA PLANNER Body Mass Index 23.63 07/17/2024 2:26 PM ASSOCIATE MEDIA PLANNER Plan of Treatment Not on file Procedures Procedure Name Priority Date/Time Associated Diagnosis Comments SCREENING MAMMOGRAM BILATERAL W DAMIAN Schedule Routine, Read Routine (OP Routine) 04/09/2024 4:24 PM CDT Screening mammogram, encounter for COLONOSCOPY 06/04/2023 12:02 PM ASSOCIATE MEDIA PLANNER from Last 3 Months or Most Recently Relevant to Health Maintenance Results * Screening Mammogram Bilateral W Damian (04/09/2024 4:24 PM CDT) Anatomical Region Laterality Modality Breast Bilateral Mammography 04/11/2024 1:29 PM CDT Impressions 04/11/2024 1:29 PM CDT There is no mammographic evidence of malignancy. The patient may continue screening mammography as per ACR guidelines. FINAL ASSESSMENT: BI-RADS Category 2: Benign. Electronically signed by: Karen Retana M.D. Narrative 04/11/2024 1:29 PM CDT EXAMINATION: BILATERAL SCREENING MAMMOGRAM WITH TOMOGRAPHY COMPARISON(S): 11/11/2020 TECHNIQUE: Full-field 2D and digital breast tomosynthesis (DBT) images were obtained. CAD was utilized. BREAST PARENCHYMAL COMPOSITION: The breasts are extremely dense, which lowers the sensitivity of mammography. FINDINGS: There is a mass like area/structure in the posterior 12:00 right breast which is fairly large. This is unchanged over multiple prior studies. It is mixed in density, and it may represent some asymmetric fibroglandular tissue with convex contours or a hamartoma. In any case, this is unchanged and thought to be benign. No suspicious calcifications are seen. There is no unexplained architectural distortion. There is no skin thickening seen. There are no mammographically abnormal lymph nodes seen in the axillae or elsewhere. us Self Screening Mammogram IMG MAMMO PROCEDURES Fi nal Result * COLONOSCOPY (06/04/2023 12:02 PM ASSOCIATE MEDIA PLANNER) Anatomical Region Laterality Modality Other Narrative Procedure Note Alexandria Denson MD - 06/04/2023 12:02 PM CST [facility] Patient Name: Eva Mccullough Procedure Date: 06/04/2023 12:02 PM Date of : 1970 Admit Type: Outpatient Age: 52 Gender: Female Attending MD: Alexandria Denson M.D. Room: [facility] ENDOSCOPY ROOM 1 Note Status: Finalized Patient Profile: This is a 52 year old female. No family history of colon cancer. Patient has chronic constipation and abdominal pain mainly in the lower or periumbilical part with the bowel movements. Procedure: Colonoscopy Indications: Screening for colorectal malignant neoplasm, Last colonoscopy: 2014 Referring MD: Darci Cerda M.D. Providers: Alexandria Denson M.D. Impression: - The entire examined colon is normal. - Internal hemorrhoids. - No specimens collected. Recommendation: - Repeat colonoscopy in 10 years for screening purposes. - Continue present medications. - Continue fiber supplements or high-fiber diet. - Symptoms are likely functional. Consider Linzessfor management of IBS with constipation starting at low dose and titrate according to response. Medicines: Monitored Anesthesia Care Complications: No immediate complications. Estimated Blood Loss: Estimated blood loss: none. Procedure: Pre-Anesthesia Assessment: - Prior to the procedure, a History and Physicalwas performed, and patient medications and allergieswere reviewed. The patient's tolerance of previous anesthesia was also reviewed. The risks andbenefits of the procedure and the sedation options and risks were discussed with the patient. All questions were answered, and informed consent was obtained. Prior Anticoagulants: The patient has taken noanticoagulant or antiplatelet agents. ASA Grade Assessment: Per anesthesia note and evaluation. After reviewing the risks and benefits, the patient was deemed in satisfactory condition to undergo the procedure. The benefits, risks and alternatives of theprocedure and sedation were discussed and informed consentwas obtained. All questions were answered. Please referto the signed informed consent document in the medical record. The bowel preparation used was Miralax via split dose instruction. The bowel preparation usedwas bisacodyl tablets via split dose instruction. The scope was passed under direct vision. The Pediatric Colonoscope [id number] was introducedthrough the anus and advanced to the the cecum, identifiedby appendiceal orifice and ileocecal valve. Thequality of the bowel preparation was good. Bowel prep was administered using a split dose. Findings: The perianal and digital rectal examinations were normal. The cecum appeared normal. The terminal ileum appeared normal. The colon (entire examined portion) appeared normal. Polyps and nomass lesions noted. Internal hemorrhoids were found during retroflexion. The hemorrhoids were small to medium-sized. Electronically signed by Alexandria Denson M.D. Alexandria Denson M.D. 06/04/2023 1:32:26 PM Number of Addenda: 0 Note Initiated On: 06/04/2023 12:02 PM Procedure Code(s): --- Professional --- 73868, Colonoscopy, flexible; diagnostic, including collection of specimen(s) by brushing or washing, when performed (separateprocedure) Diagnosis Code(s): --- Professional --- Z12.11, Encounter for screening for malignant neoplasm of colon K64.8, Other hemorrhoids CPT copyright 2020 [employer] [place] [employer]. All rights reserved. The codes documented in this report are preliminary and upon hat and cap drying room attendant reviewmay be revised to meet current compliance requirements. Recognized by the [place] [employer] for promoting quality in endoscopy Alexandria Denson MD ENDOSCOPY PROCEDURES Final Result from Last 3 Months or Most Recently Relevant to Health Maintenance Insurance [facility] CHOICE PLUS [facility] HMO/PPO Address: [facility] [address] [place] [address] [facility] Advance Directives For more information, please contact: [phone] * Full Code (Latest Code Status on File) Date Activated Date Inactivated Comments 06/04/2023 11:17 AM 06/04/2023 7:08 PM * Full Code Date Activated Date Inactivated Comments 06/04/2023 11:17 AM 06/04/2023 11:17 AM Care Teams Second Rigger Relationship Specialty Start Date End Date Will Joiner NP [address] [place] [id number] PCP - General Nurse Practitioner 05/21/24
--- OUTSIDE RECORDS SUMMARY | 2025-01-03 12:26 | XMS_ITS | Clinical Summary ---
Author Organization [facility] Address [address] [place] [address] Care Team Providers Care Tool Room Gear Machine Operator Name Role Phone Will Joiner NP Primary Care Provi naveen Allergies Active Allergy Reactions Criticality Noted Date [...] pollen Assessment & Plan (07/17/2024 2:52 PM CAR TRIMMER): Stop Flonase Astelin (azelastine) 2 sprays into [...] (10/17/2021): Added automatically from request for surgery [id number] Chronic migraine without aura 05/04/2015 Overview (10/06/2016): Chronic migraine without aura Encounters Date Type Department Care Team Description 10/27/2024 Telephone [facility] [address] [place] [id number] Phillip Thompson MD from Last 3 Months Surgical History Surgery Date Site/Laterality Comments OTHER SURGICAL HISTORY sinus surgery x2 COLONOSCOPY 07/02/2014 - 07/01/2015 HYSTERECTOMY Medical History Medical History Date Comments Hx Other Medical hx alcohol abus e Tension headache Headache, tensi on Hx Other Medical Headache, migra ine Depression Depression Family History Medical History Relation Name Comments Diabetes Father Diabetes mellit us; Headache Mother Headaches; Lung disease Other 1 Family history of Lung disease; Diabetes type II Other 2 Family hist ory of Diabetes mellitus type 2; Arthritis Other 3 Family history of Arthritis; Other Other 4 Family history of Blood clots, legs; Breast cancer Neg Hx Ovarian cancer Neg Hx Thyroid cancer Neg Hx Relation Name Status Comments Father Mother Other 1 Other 2 Other 3 Other 4 Social History Tobacco Use Types Packs/Day Years [...] on file Legal Sex Female 10:03 AM CAR TRIMMER Gender Identity Not on file Sexual Orientation Not on file Obstetrics History Para Term AB IAB SAB Ectopic Multiple Livin g Live Births 2 2 2 Date Outcome GA Total Labor Labor/2nd/3rd Weight Sex Type Anes PTL Florencia A1 A5 Name Clin Term Term Last Filed Vital Signs Vital Sign Reading Time Taken Comments Blood Pressure 146/82 07/17/2024 2:26 PM CAR TRIMMER Pulse 52 07/17/2024 2:26 PM CAR TRIMMER Temperature 36.9 C (98.5 F) 06/04/2023 1:48 PM CAR TRIMMER Respiratory Rate 18 07/17/2024 2:26 PM CAR TRIMMER Oxygen Saturation 99% 07/17/2024 2:26 PM CAR TRIMMER Inhaled Oxygen Concentration - - Weight 54.9 kg (121 lb) 07/17/2024 2:26 PM CAR TRIMMER Height 152.4 cm (5') 07/17/2024 2:26 PM CAR TRIMMER Body Mass Index 23.63 07/17/2024 2:26 PM CAR TRIMMER Plan of Treatment Health Maintenance Due Date Last Done Comments Depression Screening 1970 Hepatitis C Screening 1970 Hepatitis B Screening 1986 Regular Well Visit/Exam 18-64 1986 Zoster Vaccine (1 of 2) 2018 Influenza Vaccine (Season Ended) 2025 04/22/2019, 04/16/2018, 04/29/2015 Breast Cancer Screening-Mammogram 04/09/2025 04/09/2024, 11/11/2020, 11/11/2020, Additional history exists DTaP/Tdap/Td Vaccine (2 - Td or Tdap) 12/28/2026 12/28/2016 Colon Cancer Screening-Colonoscopy 06/04/2033 06/04/2023 Colon Cancer Screening-CT Colonography Discontinued 06/04/2023 Colon Cancer Screening-DNA Stool Discontinued 06/04/2023 Colon Cancer Screening-FIT Discontinued 06/04/2023 Colon Cancer Screening-Sigmoidoscopy Discontinued 06/04/2023 Pneumococcal vaccine <65 Aged Out No longer eligible based on patient's age to complete this topic Procedures Procedure Name Priority Date/Time Associated Diagnosis Comments SCREENING MAMMOGRAM BILATERAL W DAMIAN Schedule Routine, Read Routine (OP Routine) 04/09/2024 4:24 PM CDT Screening mammogram, encounter for COLONOSCOPY 06/04/2023 12:02 PM CAR TRIMMER from Last 3 Months or Most Recently [...] nal Result * COLONOSCOPY (06/04/2023 12:02 PM CAR TRIMMER) Anatomical Region Laterality Modality Other Narrative Procedure Note Alexandria Denson MD - 06/04/2023 12:02 PM CST [facility] Patient Name: Eva Mccullough Procedure Date: 06/04/2023 12:02 PM Date of : 1970 Admit Type: Outpatient Age: 52 Gender: Female Attending MD: Alexandria Denson M.D. Room: [facility] ENDOSCOPY ROOM 1 Note Status: Finalized Patient [...] under direct vision. The Pediatric Colonoscope PCF-H190L [id number] was introducedthrough the anus and advanced to [...] 12:02 PM Procedure Code(s): --- Professional --- 50219, Colonoscopy, flexible; diagnostic, including collection of specimen(s) by brushing or washing, when performed (separateprocedure) Diagnosis Code(s): --- Professional --- Z12.11, Encounter for screening for malignant neoplasm of colon K64.8, Other hemorrhoids CPT copyright 2020 [employer]. All rights reserved. The codes documented in this report are preliminary and upon movie operator reviewmay be revised to meet current compliance requirements. Recognized by the [place] [employer] for promoting quality in endoscopy Alexandria Denson MD ENDOSCOPY PROCEDURES Final Result from Last 3 Months or Most Recently Relevant to Health Maintenance Insurance [facility] Advance Directives For more information, please contact: [phone] * Full Code (Latest Code Status on File) Date Activated Date Inactivated Comments 06/04/2023 11:17 AM 06/04/2023 7:08 PM * Full Code Date Activated Date Inactivated Comments 06/04/2023 11:17 AM 06/04/2023 11:17 AM Care Teams Tool Room Gear Machine Operator Relationship Specialty Start Date End Date Will Joiner NP [address] [place] [id number] PCP - General Nurse Practitioner 05/21/24
[2025-01-03 12:33] VITALS: BP 127/78; PULSE 57; RESP 16; TEMP 37.2; O2SAT 100
--- NOTE | 2025-01-03 13:18 | ED.SKABFB ---
HPI - Skin/Abscess/Foreign Bdy General Chief complaint: Allergic Reaction Stated complaint: Left Ear Pain/Bee Sting Patient presents to Express Care with complaints of continued right ear redness, swelling after getting stung by a bee 2 weeks ago. Patient reports the area was significantly more swollen and cauliflower but this has slightly. Patient does note this is slightly painful itchy. Patient does also note diffuse open wounds all over her body that of a popping up over the last several weeks. Patient reports this has happened 2 other times before evaluated for this would like to know is causing this. Denies any new products, laundry detergents, sleeping in anyone to home, recent travel or stay in hotels. Related Data Home Medications ?Medication ?Instructions ?Recorded ?Confirmed ?Last Taken ?Type buprenorphine 2 mg-naloxone 0.5 mg 0.25 film sublingual DAILY 08/26/20 02/19/24 08/26/20 History sublingual film (Suboxone) cetirizine 10 mg tablet (Zyrtec) 10 mg PO DAILY PRN 12/10/24 Unknown History omeprazole 20 mg capsule,delayed mg PO 12/10/24 Unknown History release Allergies Allergy/AdvReac Type Severity Reaction Status Date / Time No Known Allergies Allergy Verified 01/03/25 13:11 Review of Systems Constitutional: Constitutional: Reports as per HPI, Denies chills, Denies fatigue, Denies fever(s) and Denies weakness Eyes: Eyes: Reports no additional eye complaints ENT: Reports as per HPI, Denies dysphagia, Denies vertigo, Denies dizziness, Denies epistaxis, Denies nasal congestion and Denies sore throat Comments: Pain redness, swelling, and itching right ear Cardiovascular: Cardiovascular: Reports no additional cardiovascular complaints Respiratory: Respiratory: Reports no additional respiratory complaints Gastrointestinal: Gastrointestinal: Reports no additional gastrointestinal complaints Genitourinary: Genitourinary: Reports no additional female genitourinary complaints Musculoskeletal: Musculoskeletal: Reports as per HPI, Denies back pain, Denies myalgias, Denies arthralgias, Denies joint swelling and Denies muscle cramps Comments: redness, swelling, and itching right ear Integumentary/Breasts: Skin/Breast: Reports as per HPI, Reports pruritus, Reports erythema and Denies rash Comments: right ear. diffuse Open wounds chest, back, legs and arms. Neurologic: Reports as per HPI Psychiatric: Psychiatric: Reports as per HPI Endocrine: Endocrine: Reports as per HPI Hematologic/Lymphatic: Hematologic/Lymphatic: Reports no additional hematologic/lymphatic complaints Allergic/Immunologic: Allergic/Immunologic: Reports no additional allergic/immunologic complaints [facility] Past Medical History Medical History Bilateral carpal tunnel syndrome Anxiety Encounter for cosmetic surgery Surgical History Surgical History History of carpal tunnel surgery History of tubal ligation H/O elbow surgery History of nasal surgery Delivery by section x2 H/O sinus surgery Family History Family History Father Diabetes mellitus Mother Diabetes mellitus Depression Alcoholism Grandparent Depression Alcoholism Social History Social History Smoking status: Never smoker Second hand tobacco smoke exposure: No Alcohol intake: former Alcohol use details: stopped 3 years ago Substance use: never Substance use type: does not use Current Housing: Decline to Answer Concerned About Future Housing: Decline to Answer Difficulty Paying Gas/Electric Bills: Decline to Answer Difficulty Paying for Meds: Decline to Answer Currently Unemployed: Decline to Answer Education: Don't Know Difficulty w/ Childcare or Family Care: Decline to Answer Living arrangements: other Additional living arrangements comments: spouse Occupation/Education: occupation 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 Gender identity (if verbalized by the patient): Female Sexual Orientation (if Verbalized by the Patient): Straight or Heterosexual Exam Const: General: healthy appearing and no acute distress Nutritional Appearance: well nourished Orientation/consciousness: patient oriented x3 Limitations: no limitations HENMT: Ears: external ears abnormal and TM's normal bilaterally Face/Nose/Sinus: Normal external nose present Face and sinus: normal facial exam and sinuses nontender Mouth: Yes Normal oral and palatal mucosa present Throat: posterior oropharynx normal Other: right ear diffuse swelling, redness to right pinna and outer ear Neck: Neck: no lymphadenopathy Resp: Effort & Inspection: normal respiratory effort Auscultation: clear to auscultation bilaterally Cardio: Rate: regular rate Rhythm: regular rhythm Skin: General skin exam: normal color Wounds: wounds noted Other: diffuse open wounds over bilateral bilateral legs, chest, and back. No active drainage or crusting. Neuro: General: patient oriented x3 Speech: normal speech Gait exam (Neuro): Normal gait present Psych: Mental Status: mental status grossly normal Affect: normal affect Attitude: cooperative Course Course Level of Care: Express Care Visit MDM - Skin/Abscess/Foreign Bdy MDM Narrative Medical decision making narrative: Diffuse open wounds possible MRSA infection given patient having no other cause for symptoms. Will place patient on Bactrim in use topical mupirocin to the area. Noted the ear is likely a secondary bacterial infection will use the Bactrim for this and apply topical steroid cream to the area. Discharge instructions reviewed with patient, as well as provided in writing per nursing staff. The instructions also include specific and strict return/GO TO THE ER as well as f/u information. All questions have been answered, and the patient deny any further questions with discharge and discharge plan. Differential Diagnosis Differential diagnosis: Likely cellulitis, eczema, insect bites, impetigo and contact dermatitis Medical Records Attestation: I reviewed the patient's medical records. Discharge Plan Discharge Clinical Impression: Toxic effect of venom of bees, Superficial bacterial infection of skin, MRSA (methicillin resistant Staphylococcus aureus) infection Patient Disposition: Home Condition: Stable Instructions: Antibiotic Form, MRSA (Methicillin-Resistant Staphylococcus Aureus) (ED), Cellulitis (ED) Additional Instructions: Clean with soap and water only; Avoid using alcohol and peroxide. Elevate the affected area if possible Alternate Tylenol/ibuprofen for as needed for pain Acetaminophen(Tylenol) 650-1000mg every 4-6hours with max of 4000mg/day. Nonsteroidal anti-inflammatory agent (NSAIDs-ibuprofen): 400mg every 4-6hours with max 2400mg/day Take antibiotic until it's gone. Please schedule a follow up visit with your personal physician for further evaluation and treatment within 3-5days OR if your symptoms persist, change or worsen significantly before you can contact your personal physician then please, without delay, go to the emergency department for further evaluation. Patient Language: Armenian Prescriptions: New sulfamethoxazole-trimethoprim [Bactrim DS] 800-160 mg tablet 1 tablet PO Q12H Qty: 20 0RF triamcinolone acetonide 0.1 % cream 1 applic topical TID Qty: 80 0RF mupirocin [Centany] 2 % ointment 1 applic topical BID Qty: 22 0RF No Action buprenorphine-naloxone [Suboxone] 2-0.5 mg Film 0.25 film sublingual DAILY cetirizine [Zyrtec] 10 mg tablet 10 mg PO DAILY PRN omeprazole 20 mg capsule,delayed release(DR/EC) PO estradiol 1 mg tablet 1.5 mg PO DAILY Qty: 120 3RF Follow-up/Referrals: Rhys,WILLEM Solis [Primary Care Provider] - Time of Disposition: 13:25
[2025-01-03 13:44] VITALS: BP 127/78; PULSE 57; RESP 16; TEMP 37.2; O2SAT 100
== END 2025-01-03 13:25 | disposition home or self-care (01) ==
PROVIDERS: Emergency Provider Nurse Practitioner Family; PCP Registered Nurse
DX: T63.444A Toxic effect of venom of bees, undetermined, initial encounter (principal); A49.9 Bacterial infection, unspecified; A49.02 Methicillin resistant Staphylococcus aureus infection, unspecified site
CPT/HCPCS: 99213; G0463